=== PATIENT | female | born 1970 | race Caucasian/White ===

== ENCOUNTER 2016-11-03 18:17 | Emergency (ER) | payer OTHER ==
[~2016-11-03] VITALS: Ht 170.2 cm; Wt 110.4 kg
[2016-11-03] MEDS ORDERED: TYLENOL WITH C1 EACH PO (20:49)
[2016-11-03 20:57] VITALS: BP 109/106
== END 2016-11-03 21:00 | disposition home or self-care (01) ==
LOC: EME 18:17
DX: S16.1XXA Strain of muscle, fascia and tendon at neck level, initial encounter (principal); S39.012A Strain of muscle, fascia and tendon of lower back, initial encounter; R51 Headache; V43.52XA Car driver injured in collision with other type car in traffic accident, initial encounter; Y92.411 Interstate highway as the place of occurrence of the external cause; Z87.891 Personal history of nicotine dependence
CPT/HCPCS: 70450; 71010; 72100; 72125; 99281; 99284